=== PATIENT | female | born 1995 | race Caucasian/White ===

== ENCOUNTER → 2021-02-20 | Outpatient (REF) | payer OTHER | LOC: M SFHCRHEU 15:50 | PROVIDERS: ATTEND Internal Medicine | DX: M54.9 Dorsalgia, unspecified (principal) ==

== ENCOUNTER → 2021-02-23 | Outpatient (CLI) | payer OTHER ==
--- NOTE | 2021-02-23 12:36 | REP ---
INDICATION: DORSALGIA COMPARISON: None. TECHNIQUE: AP, lateral, flexion/extension, bilateral oblique, and coned-down views. FINDINGS: Alignment and lordosis is maintained. The vertebral bodies including transverse process and spinous processes are intact and normal. There is no evidence for acute fracture / compression injury or subluxation. No evidence for spondylolysis or spondylolisthesis. No significant degenerative change is noted. IMPRESSION: Normal lumbosacral spine radiograph series. <Electronically signed by Asif Dias > 02/23/21 [id number]
--- NOTE | 2021-02-23 12:37 | REP ---
INDICATION: DORSALGIA COMPARISON: None. TECHNIQUE: AP, lateral, and swimmers views. FINDINGS: Alignment and kyphosis is maintained. Vertebral bodies intact. No acute fracture / compression injury or subluxation. No degenerative changes. Paravertebral soft tissues are normal. IMPRESSION: Normal thoracic spine series. <Electronically signed by Asif Dias > 02/23/21 [id number]
--- NOTE | 2021-02-23 12:38 | REP ---
INDICATION: DORSALGIA Nontraumatic hip pain. COMPARISON: None. TECHNIQUE: Frontal view of the pelvis with neutral and frog lateral views of the right and left hip. FINDINGS: Osseous structures including bilateral hip joints are normal. Surrounding soft tissues are unremarkable. No obvious congenital or degenerative abnormalities noted. IMPRESSION: Normal pelvis and bilateral hip series. <Electronically signed by Asif Dias > 02/23/21 [id number]
== END ==
LOC: M RAD 11:54
PROVIDERS: ATTEND Internal Medicine
DX: M54.9 Dorsalgia, unspecified (principal); M25.559 Pain in unspecified hip

== ENCOUNTER → 2021-05-05 | Outpatient (CLI) | payer OTHER ==
--- NOTE | 2021-05-05 14:48 | REP ---
INDICATION: DORSALGIA. COMPARISON: None. TECHNIQUE: 3T multiplanar MRI imaging of the osseous pelvis was obtained using various sequences. FINDINGS: The femoral heads are spherical in shape and symmetric in appearance. There is no abnormal focal chondral or subchondral signal seen arising from the femoral or acetabular component of either hip. There is no hip joint effusion. The chondral surfaces are smooth. There is no evidence of a mass or mass effect. The signal and morphologic appearance throughout the imaged musculature is within normal limits. The cortical and marrow signal seen throughout the imaged osseous pelvis is within normal limits. There is a small amount of free pelvic fluid which is likely physiologic. The sacroiliac joints are within normal limits. IMPRESSION: MRI findings are within normal limits. <Electronically signed by Cesar Dos Santos > 05/05/21 [id number]
== END ==
LOC: M PLAIMG 10:36
PROVIDERS: ATTEND Internal Medicine
DX: M54.9 Dorsalgia, unspecified (principal)